=== PATIENT | female | born 1985 | race African-American/Black ===

== ENCOUNTER 2019-03-16 14:41 | Outpatient (CLI) | payer OTHER ==
[2019-03-16 16:21] VITALS: BP 104/59; PULSE 80; RESP 18; TEMP 97.1
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
== END 2019-03-16 16:10 | disposition home or self-care (01) ==
LOC: FBPOP 14:41
PROVIDERS: ATTEND Obstetrics & Gynecology
DX: O47.03 False labor before 37 completed weeks of gestation, third trimester (principal); Z3A.34 34 weeks gestation of pregnancy
CPT/HCPCS: 59025; G0463; 99213